=== PATIENT | male | born 1990 | race Caucasian/White ===

== ENCOUNTER 2020-06-09 21:37 | Emergency (ER) | payer BC, SELFPAY ==
[2020-06-09 21:43] VITALS: PULSE 90; RESP 14; O2SAT 100
[2020-06-09 21:44] VITALS: BP 176/85; BP 187/98; PULSE 85; PULSE 90; RESP 18; RESP 20; TEMP 36.6; O2SAT 100; O2SAT 99
[2020-06-09 21:45] VITALS: BP 148/79; PULSE 86; RESP 12
--- NOTE | 2020-06-09 22:00 | ECG_ITS ---
Measurements Intervals [place] Rate: 73 P: 54 [place]: 168 QRS: 34 QRSD: 88 T: 31 QT: 375 QTc: 413 Interpretive Statements SINUS RHYTHM BASELINE ARTIFACT- I, II, III, V2 NORMAL ECG Electronically Signed On 06-10-2020 7:03:47 [employer] by Douglas Carranza D.O.
[2020-06-09 22:18] LABS: Basophils Percent Auto 0.7 % (0.2-1.2); Eosinophils Absolute Auto 0.1 K/mm3 (0-0.3); Eosinophils Percent Auto 2.6 % (0-4.4); Hematocrit 41.4 % (42.0-52.0); Hemoglobin 14.8 g/dL (14.0-18.0); Immature Granulocyte Absolute 0.01 K/mm3 (0.00-0.031); Immature Granulocyte Percent A 0.2 % (0-0.5); Lymphocytes Absolute Auto 2.66 K/mm3 (0.9-3.2); Lymphocytes Percent Auto 49.6 % (18.3-44.2); Mean Corpuscular HGB Conc 35.7 g/dl (32-36); Mean Corpuscular Hemoglobin 31.3 pg (26-34); Mean Corpuscular Volume 87.5 fl (80-100); Mean Platelet Volume 10.6 fl (7.4-10.4); Monocytes Absolute Auto 0.4 K/mm3 (0.1-0.6); Neutrophils Absolute Auto 2.1 K/mm3 (1.3-6.7); Neutrophils Percent Auto 38.9 % (45.5-73.1); Platelet Count Result 197 k/mm3 (150-375); Red Blood Count 4.73 M/mm3 (4.6-6.20); Red Cell Distribution Width 10.8 % (11.5-14.5); White Blood Count 5.4 K/mm3 (4.5-10.0)
[2020-06-09 22:31] LABS: Add Urine Microscopic? YES; Appearance Urine Clear (Clear); Bilirubin Urine Negative (Negative); Blood Urine 1+ (Negative); Color Urine Colorless (Yellow); Glucose Urine UA Negative (Negative); Ketones Urine Negative (Negative); Leukocyte Esterase Ur Negative LEU/UL (Negative); Nitrate Urine Negative (Negative); Protein Urine Negative (Negative); Specific Grav Ur 1.003 (1.001-1.035); Urobilinogen Urine Negative mg/dL (<2.0)
[2020-06-09 22:31] LABS: Alanine Aminotransferase 24 U/L (4-50); Albumin Level 4.8 g/dL (3.5-5.1); Alkaline Phosphatase 52 U/L (38-126); Anion Gap 9 mmol/L (8-16); Aspartate Amino Transferase 32 U/L (17-59); Bilirubin,Total 0.5 mg/dL (0.2-1.3); Blood Urea Nitrogen 13 mg/dL (9-20); Calcium 9.5 mg/dL (8.4-10.2); Carbon Dioxide 28 mmol/L (22-30); Chloride 104 mmol/L (98-107); Estimated CRCL calculation 113 ml/min; Estimated Glomerular Filt Rate > 60; Glucose 116 mg/dL (75-110); Potassium 3.3 mmol/L (3.4-5.0); Sodium 141 mmol/L (137-145)
--- NOTE | 2020-06-09 22:32 | ED.HA ---
HPI - Headache General Chief Complaint: Headache Stated Complaint: headache, Time Seen by Provider: 06/09/20 21:46 Source: patient Mode of arrival: ambulatory Limitations: no limitations History of Present Illness HPI Narrative: This patient is a 30 year old male who presents for evaluation of elevated blood pressure. He noticed that his blood pressure was elevated when he was at eye doctor 2 months ago. He reports his BP with 140s/90s. He has been making lifestyle changes and he has been monitoring his blood pressure twice a day. He has not been evaluated by a primary care physician. He states he was having a mild frontal headache tonight so he checked his blood pressure. He states his blood pressure was 170s/80s so he came to the ER. He denies blurred vision, chest pain, shortness of breath, or dizziness. He has not taken anything for his headache. He reports his headache is 4/10 pain. Related Data Home Medications Medication Instructions Recorded Confirmed No Home Medications 06/09/20 06/09/20 Allergies Allergy/AdvReac Type Severity Reaction Status Date / Time acetaminophen AdvReac Anxiety Verified 06/09/20 22:45 [From Theraflu Night Severe Cold-Cgh] diphenhydramine AdvReac Anxiety Verified 06/09/20 22:45 [From Theraflu Night Severe Cold-Cgh] phenylephrine AdvReac Anxiety Verified 06/09/20 22:45 [From Theraflu Night Severe Cold-Cgh] Review of Systems Review of Systems: All systems reviewed & are unremarkable except as noted in HPI and below PMFSH Past Medical History Medical History (Updated 06/09/20 @ 23:15 by Socorro Scruggs MD) Patient denies medical problems Surgical History Surgical History (Updated 06/09/20 @ 22:39 by Socorro Scruggs MD) History of surgery on arm Social History Social History (Updated 06/09/20 @ 22:40 by Socorro Scruggs MD) Smoking status: Never smoker Alcohol use details: stopped drinking alcohol 10 days ago Gender identity (if verbalized by the patient): Male Exam Narrative: Exam Narrative: GENERAL: Well-appearing, well-nourished, and in no acute distress. HEAD: Normocephalic, atraumatic EYES: PERRLA and EOMI, conjunctiva clear without discharge THROAT:Mucous membranes moist, Oropharynx normal without erythema, exudate, peritonsillar swelling or fluctuance NECK: Supple, without lymphadenopathy or mass RESPIRATORY: No respiratory distress, Airway patent, Respirations non-labored, Clear to auscultation without rales, rhonchi or wheeze HEART: Regular rate and rhythm. No murmur heard. Normal peripheral pulses. ABDOMEN: Soft, nontender, nondistended, normal active bowel sounds. No masses. No rebound or guarding, No organomegaly. EXTREMITIES: No edema, normal strength with full range of motion. SKIN: Warm, dry, normal color without rash NEURO: Alert and oriented x3. CN 2-12 grossly intact. No focal deficits. . Psych: Affect: Anxious affect present Course Reevaluation(s) Reevaluation #1: Patient reports he feels better. I discussed labs. His BP is 129/82. I discussed he will need to follow up with PCP. He will continue to monitor blood pressure and I discussed symptoms to look for to determine if you need to return. No acute injury seen . Date: 06/09/20 Time: 23:11 Vital Signs Vital signs: Vital Signs Pulse Rate 90 06/09/20 21:43 Respiratory Rate 14 06/09/20 21:43 Pulse Oximetry 100 06/09/20 21:43 Temperature 97.9 F 06/09/20 21:44 Pulse Rate 86 06/09/20 21:45 Respiratory Rate 12 06/09/20 21:45 Blood Pressure 148/79 H 06/09/20 21:45 Pulse Oximetry 99 06/09/20 21:44 MDM - Headache Lab Data Attestation: I reviewed the patient's lab results. Result diagrams: 06/09/20 22:14 06/09/20 22:14 Labs: Lab Results 06/09/20 06/09/20 06/09/20 Range/Units 22:14 22:14 22:15 WBC 5.4 (4.5-10.0) K/mm3 RBC 4.73 (4.6-6.20) M/mm3 Hgb 1
[2020-06-09] MEDS: ACETAMINOPHEN 500 MG TABLET 1000 MG PO (22:44)
[2020-06-09 23:30] VITALS: BP 129/82; PULSE 57; RESP 16; O2SAT 98
== END 2020-06-09 23:32 | disposition home or self-care (01) ==
PROVIDERS: Emergency Provider General Practice
DX: R03.0 Elevated blood-pressure reading, without diagnosis of hypertension (principal); R51.9 Headache, unspecified
CPT/HCPCS: 36415; 80053; 81001; 85025; 93005; 99283; A9270